=== PATIENT | male | born 1965 ===

== ENCOUNTER 2017-08-13 09:12 | Day surgery (SDC) | payer MEDICAID ==
--- NOTE | 2017-08-13 10:24 | CP.SDSHP ---
Same Day Surgery H & P - History Proposed Procedure: US guided bx of right parotid mass Pre-Op Diagnosis: Right parotid mass - Physical Exam Mental Status: Alert & Oriented x3 - Impression Impression: Pt with a 3.9 cm complex right parotid mass. Plan US guided FNA. Pt. Evaluated Today:Candidate for Anesthesia & Procedure: No - Date & Time Date: 08/13/17 Time: 10:10 Short Stay Discharge - Short Stay Discharge Admitting Diagnosis/Reason for Visit: PAROTID MASS
--- NOTE | 2017-08-13 10:38 | PCM.SURG1 ---
Surgeon's Initial Post Op Note - Surgeon's Notes Surgeon: Jerry Lowery MD Steam Oven Operator: NONE Type of Anesthesia: Local Pre-Operative Diagnosis: Right parotid mass Operative Findings: US showed a complex 3.9 cm right parotid solid mass. Post-Operative Diagnosis: Right parotid mass Operation Performed: US guided core biopsy Specimen/Specimens Removed: 20 g core x 4 Estimated Blood Loss: EBL {In ML}: 1 Blood Products Given: N/A Drains Used: No Drains Post-Op Condition: Fair Date of Surgery/Procedure: 08/13/17 Time of Surgery/Procedure: 10:30
--- NOTE | 2017-08-13 11:19 | US ---
PROCEDURE: DATE OF PROCEDURE: 08/13/2017 PROCEDURE: 1. Ultrasound-guided biopsy of right parotid mass 2. Ultrasound guidance for procedure, CPT 35337 Medications: 6cc 1 percent lidocaine HISTORY: right parotid mass TECHNIQUE: Following informed consent, the right parotid area was marked. Procedure time out was called and the parotid area was prepped and draped in the usual sterile manner. A limited ultrasound was performed of the right parotid which shows a 3.9 centimeter right parotid mass. The mass is solid. Ultrasound-guided core biopsy was performed. Under ultrasound guidance, an 20 gauge needle was advanced into the nodule and four 20 g specimen were removed and sent for pathology. A post biopsy ultrasound showed no hematoma. IMPRESSION: Ultrasound-guided core biopsy right parotid mass.
== END 2017-08-13 11:15 | disposition home or self-care (01) ==
LOC: C.SPRAD 09:12
PROVIDERS: ATTEND Radiology Vascular & Interventional Radiology
DX: D11.0 Benign neoplasm of parotid gland (principal)